=== PATIENT | male | born 1995 | race African-American/Black ===

== ENCOUNTER 2021-09-26 11:41 | Emergency (ER) | payer MEDICAID ==
[~2021-09-26] VITALS: Ht 182.9 cm; Wt 66.0 kg
[2021-09-26 12:04] VITALS: BP 140/71
[2021-09-26] MEDS ORDERED: IBUP-2028 MT (13:09)
[2021-09-26] MEDS ORDERED: AMOX1TAB16 MT (13:09)
== END 2021-09-26 13:30 | disposition home or self-care (01) ==
LOC: ER 11:41
DX: K08.89 Other specified disorders of teeth and supporting structures (principal); K04.7 Periapical abscess without sinus
CPT/HCPCS: 99281; 99283